=== PATIENT | male | born 1950 | race Hispanic/Latino ===

== ENCOUNTER 2018-03-02 19:10 | Emergency (ER) | payer OTHER ==
[2018-03-02] MEDS ORDERED: Amoxicillin-Clav 875-125 mg Tab PO STA (19:33)
[2018-03-02] MEDS ORDERED: Rabies Immune Globulin 150 INTLU/ML VIAL IM ONE (19:34)
[2018-03-02] MEDS ORDERED: TDAP Vaccine 0.5 mL Syr IM ONE (19:36)
[2018-03-02 19:37] VITALS: BP 167/74; PULSE 72; RESP 16; TEMP 98
--- NOTE | 2018-03-02 19:48 | ED PDOC ---
Arrival/HPI <Dalton Blackwell - Last Filed: 03/02/18 21:33> - General Historian: Patient - History of Present Illness Narrative History of Present Illness (Text): 03/02/18 19:40 Pt is a 67 yo M with Past medical history of HTN, COPD, and AAA s/p repair in 2011 who presents for a cat bite. He states that he was attempting to get feral cats out of his lawn when the last cat bit him as he was grabbing the cat to get it out of his backyard. He states that after the bite he cleaned the area with hydrogen peroxide and then wrapped it up. He states that the cat only bit him once on his R index finger and he is having no pain from the bite as of now. He comes to the emergency department for a tetanus shot. He denies any swelling of the joint, any fevers, chills, numbness, tingling, weakness or limited ROM due to pain. past medical history: HTN, COPD, AAA s/p repair ' Pshx: AAA repair '12 @ [facility] All: NKDA Social: Occasional smoker- last was 2 weeks ago, social etoh use and recreational marijuana use last 1 mo ago Fam Hx: Denies Time/Duration: 4-6 hours Symptom Onset: Sudden Symptom Course: Improving <FelipeRenee - Last Filed: 03/02/18 22:09> - General Chief Complaint: Bite Time Seen by Provider: 03/02/18 19:12 Past Medical History - Provider Review Nursing Documentation Reviewed: Yes - Cardiac Hx Cardiac Disorders: Yes Hx Hypertension: Yes Other/Comment: AAA 10/25/2011 - Pulmonary Hx Respiratory Disorders: Yes Hx Chronic Obstructive Pulmonary Disease (COPD): Yes - Neurological Hx Neurological Disorder: No - HEENT Hx HEENT Disorder: No - Renal Hx Renal Disorder: No - Endocrine/Metabolic Hx Endocrine Disorders: No - Hematological/Oncological Hx Blood Disorders: No - Integumentary Hx Dermatological Disorder: No - Musculoskeletal/Rheumatological Hx Musculoskeletal Disorders: Yes Other/Comment: L4-L5 - Gastrointestinal Hx Gastrointestinal Disorders: No - Genitourinary/Gynecological Hx Genitourinary Disorders: No - Psychiatric Hx Psychophysiologic Disorder: No Hx Substance Use: No - Surgical History Hx Abdominal Aortic Aneurysm Repair: Yes (2011) Other/Comment: B/L Hernia repair - Suicidal Assessment Feels Threatened In Home Enviroment: No <Renee Wang - Last Filed: 03/02/18 22:09> Family/Social History - Physician Review Nursing Documentation Reviewed: Yes Family/Social History: No Known Family HX Smoking Status: Current Some Days Smoker Hx Alcohol Use: Yes (occasional) Hx Substance Use: No Hx Substance Use Treatment: No <Sloan Wangd - Last Filed: 03/02/18 22:09> Allergies/Home Meds <Dalton Blackwell - Last Filed: 03/02/18 21:33> <Sloan Wangd - Last Filed: 03/02/18 22:09> Allergies/Adverse Reactions: Allergies No Known Allergies Allergy (Verified 03/02/18 19:29) Home Medications: Home Meds Medication Instructions Recorded Confirmed Aspirin [Aspirin Chewable] 81 mg PO DAILY 05/29/15 05/29/15 Lisinopril 20 mg PO DAILY 05/29/15 05/29/15 Metoprolol Tartrate [Lopressor] 50 mg PO BID 05/29/15 05/29/15 Review of Systems - Physician Review All systems were reviewed & negative as marked: Yes - Review of Systems Constitutional: absent: Fevers Respiratory: absent: SOB, Cough Cardiovascular: absent: Chest Pain, Palpitations <Inocente Wangmad - Last Filed: 03/02/18 22:09> Physical Exam Vital Signs Temp Pulse Resp BP Pulse Ox 03/02/18 19:30 98.0 F 72 16 167/74 H 97 <RosalvaDalton - Last Filed: 03/02/18 21:33> Vital Signs Reviewed: Yes Vital Signs Temp Pulse Resp BP Pulse Ox 03/02/18 19:30 98.0 F 72 16 167/74 H 97 Temperature: Afebrile Blood Pressure: Hypertensive Pulse: Regular Respiratory Rate: Normal Appearance: Positive for: Well-Appearing, Non-Toxic, Comfortable Pain Distress: None Mental Status: Positive for: Alert and Oriented X 3 - Systems Exam Head: Present: Atraumatic, Normocephalic Pupils: Present: PERRL Extroacular Muscles: Present: EOMI Conjunctiva: Present: Normal Respiratory/Chest: Present: Clear to Auscultation, Good Air Exchange. No: Respiratory Distress, Accessory Muscle Use, Wheezes, Rales, Rhonchi Cardiovascular: Present: Regular Rate and Rhythm, Normal S1, S2. No: Murmurs, Rub, Gallop Abdomen: Present: Normal Bowel Sounds. No: Tenderness, Distention, Peritoneal Signs, Rebound, Guarding Upper Extremity: Present: Normal ROM, Neurovascularly Intact, Capillary Refill < 2s. No: Normal Inspection (puncture type laceration present on the dorsal aspect of the R index finger between the MCP joint and PIP joint. ROM is intact, no numbness or tingling present.), Erythema Neurological: Present: GCS=15, Speech Normal, Motor Func Grossly Intact, Normal Sensory Function Skin: Present: Warm, Dry, Normal Color. No: Rashes Psychiatric: Present: Alert, Oriented x 3, Normal Insight, Normal Concentration <Renee Wang - Last Filed: 03/02/18 22:09> Medical Decision Making ED Course and Treatment: 03/02/18 21:31 Patient is a 67 year old male presenting to the Emergency room complaining of a feral cat bite. In agreement with resident note. Patient was seen and evaluated with resident, came up with plan and treatment together. - Medication Orders Current Medication Orders: Discontinued Medications Amoxicillin/Clavulanate Potassium (Augmentin 875 Mg-125 Mg Tab) 1 tab PO STAT STA; Protocol Stop: 03/02/18 19:34 Last Admin: 03/02/18 19:47 Dose: 1 tab Rabies Immune Globulin (Imogam) 1,300 intlu IM .ONCE ONE Stop: 03/02/18 19:35 Last Admin: 03/02/18 20:50 Dose: 1,300 intlu IM Administration Charges Document 03/02/18 20:50 JOL (Rec: 03/02/18 20:50 JOL [id number]) Injection Site MAR Injection Site Left Deltoid Charges for Administration # of IM Administrations 2 MAR Immunization Data Document 03/02/18 20:50 JOL (Rec: 03/02/18 20:50 JOL [id number]) Immunization Data Vaccine Information Sheet Given Yes Immunization Registry Document 03/02/18 20:50 JOL (Rec: 03/02/18 20:50 [id number] Immunization Registry Consent Date 01/23/18 Rabies Vaccine Human Diploid Cell (Imovax Rabies) 2.5 units IM .ONCE ONE Stop: 03/02/18 19:35 Last Admin: 03/02/18 20:50 Dose: 2.5 units MAR Immunization Data Document 03/02/18 20:50 JOL (Rec: 03/02/18 20:50 JOL [id number]) Immunization Data Vaccine Information Sheet Given Yes Immunization Registry Document 03/02/18 20:50 JOL (Rec: 03/02/18 20:50 JOL [id number]) Immunization Registry Consent Date 01/23/18 Tetanus/Reduced Diphtheria/Acell Pertussis (Boostrix Vaccine Inj) 0.5 ml IM .ONCE ONE Stop: 03/02/18 19:37 Last Admin: 03/02/18 19:47 Dose: 0.5 ml Immunization Registry Document 03/02/18 19:47 SS (Rec: 03/02/18 19:47 SS [id number]) Immunization Registry Consent Date 01/23/18 <Dalton Blackwell - Last Filed: 03/02/18 21:33> ED Course and Treatment: 03/02/18 19:52 Pt is a 67 yo M with Past medical history detailed above who presented for a feral cat bite. - Augmentin 875/125 - Rabies Immunoglobulin and Vaccine - Tetanus booster - Medication Orders Current Medication Orders: Rabies Immune Globulin (Imogam) 1,300 intlu IM .ONCE ONE Stop: 03/02/18 19:35 Discontinued Medications Amoxicillin/Clavulanate Potassium (Augmentin 875 Mg-125 Mg Tab) 1 tab PO STAT STA; Protocol Stop: 03/02/18 19:34 Rabies Vaccine Human Diploid Cell (Imovax Rabies) 2.5 units IM .ONCE ONE Stop: 03/02/18 19:35 Tetanus/Reduced Diphtheria/Acell Pertussis (Boostrix Vaccine Inj) 0.5 ml IM .ONCE ONE Stop: 03/02/18 19:37 <Renee Wang - Last Filed: 03/02/18 22:09> - PA / COMMUNITY RELATIONS OFFICER / Resident Statement / has reviewed & agrees with the documentation as recorded. / has examined the patient and agrees with the treatment plan. - Scribe Statement The provider has reviewed the documentation as recorded by the Annalisaibkallie Teague All medical record entries made by the Scribe were at my direction and personally dictated by me. I have reviewed the chart and agree that the record accurately reflects my personal performance of the history, physical exam, medical decision making, and the department course for this patient. I have also personally directed, reviewed, and agree with the discharge instructions and disposition. <Dalton Blackwell - Last Filed: 03/02/18 21:33> Disposition/Present on Arrival <Dalton Blackwell - Last Filed: 03/02/18 21:33> - Present on Arrival Any Indicators Present on Arrival: No History of DVT/PE: No History of Uncontrolled Diabetes: No Urinary Catheter: No History of Decub. Ulcer: No History Surgical Site Infection Following: None - Disposition Have Diagnosis and Disposition been Completed?: Yes Disposition Time: 21:28 Patient Plan: Discharge <Renee Wang - Last Filed: 03/02/18 22:09> - Disposition Diagnosis: Cat bite of finger Disposition: HOME/ ROUTINE Condition: GOOD Additional Instructions: - Please keep wound dry and clean - Please cover wound with bacitracin when changing bandages - Please take prescribed antibiotics as directed and complete course - Please return for your follow up rabies vaccine series on days 3, 7, 14 and 21. First shot was administered today - If any new symptoms occur or if current symptoms worsen please return to the emergency department. Prescriptions: Amoxicillin/Clavulanate [Augmentin 875 MG-125 MG] 1 tab PO BID #20 tab Referrals: Maxim Jaimes MD [Primary Care Provider] - Follow up with primary Forms: [employer] (Syrian)
[2018-03-02] MEDS ORDERED: Bacitracin 500 Units/gm Oint Foilpak UD ONE (21:29)
[2018-03-02] MEDS ORDERED: Bacitracin 500 Units/gm Oint Foilpak UD TOP ONE (21:33)
[2018-03-02 21:48] VITALS: O2SAT 99
== END 2018-03-02 21:39 | disposition home or self-care (01) ==
LOC: ED 19:10
DX: S61.250A Open bite of right index finger without damage to nail, initial encounter (principal); W55.01XA Bitten by cat, initial encounter; I10 Essential (primary) hypertension; J44.9 Chronic obstructive pulmonary disease, unspecified

== ENCOUNTER 2018-03-05 06:08 | Emergency (ER) | payer OTHER ==
[2018-03-05 06:13] VITALS: BP 197/79; PULSE 77; RESP 18; TEMP 98.5; O2SAT 96
--- NOTE | 2018-03-05 06:17 | ED PDOC ---
Arrival/HPI - General Chief Complaint: Rabies Vaccine Series Time Seen by Provider: 03/05/18 06:13 - History of Present Illness Narrative History of Present Illness (Text): 03/05/18 06:13 pt presents for 2nd rabies vaccine , no other complaints Past Medical History - Provider Review Nursing Documentation Reviewed: Yes - Infectious Disease Hx of Infectious Diseases: None - Cardiac Hx Cardiac Disorders: Yes Hx Hypertension: Yes Other/Comment: AAA 10/25/2011 - Pulmonary Hx Respiratory Disorders: Yes Hx Chronic Obstructive Pulmonary Disease (COPD): Yes - Neurological Hx Neurological Disorder: No - HEENT Hx HEENT Disorder: No - Renal Hx Renal Disorder: No - Endocrine/Metabolic Hx Endocrine Disorders: No - Hematological/Oncological Hx Blood Disorders: No - Integumentary Hx Dermatological Disorder: No - Musculoskeletal/Rheumatological Hx Musculoskeletal Disorders: Yes Other/Comment: L4-L5 - Gastrointestinal Hx Gastrointestinal Disorders: No - Genitourinary/Gynecological Hx Genitourinary Disorders: No - Psychiatric Hx Psychophysiologic Disorder: No Hx Substance Use: No - Surgical History Hx Abdominal Aortic Aneurysm Repair: Yes (2011) Other/Comment: B/L Hernia repair - Suicidal Assessment Feels Threatened In Home Enviroment: No Family/Social History - Physician Review Nursing Documentation Reviewed: Yes Family/Social History: No Known Family HX Smoking Status: Current Some Days Smoker Hx Alcohol Use: Yes (occasional) Hx Substance Use: No Hx Substance Use Treatment: No Allergies/Home Meds Allergies/Adverse Reactions: Allergies No Known Allergies Allergy (Verified 03/02/18 19:29) Home Medications: Home Meds Medication Instructions Recorded Confirmed Aspirin [Aspirin Chewable] 81 mg PO DAILY 05/29/15 05/29/15 Lisinopril 20 mg PO DAILY 05/29/15 05/29/15 Metoprolol Tartrate [Lopressor] 50 mg PO BID 05/29/15 05/29/15 Review of Systems - Review of Systems Skin: Normal Physical Exam Vital Signs Reviewed: Yes Vital Signs Temp Pulse Resp BP Pulse Ox 03/05/18 06:12 98.5 F 77 18 197/79 H 96 Temperature: Afebrile - Systems Exam Upper Extremity: Present: Other (healing wound left index finger) Disposition/Present on Arrival - Present on Arrival Any Indicators Present on Arrival: No History of DVT/PE: No History of Uncontrolled Diabetes: No Urinary Catheter: No History of Decub. Ulcer: No History Surgical Site Infection Following: None - Disposition Have Diagnosis and Disposition been Completed?: Yes Diagnosis: Need for rabies vaccination Disposition: HOME/ ROUTINE Disposition Time: 06:17 Condition: GOOD
== END 2018-03-05 06:35 | disposition home or self-care (01) ==
LOC: ED 06:08
DX: Z23 Encounter for immunization (principal)

== ENCOUNTER 2018-03-09 08:36 | Emergency (ER) | payer OTHER ==
[2018-03-09 08:50] VITALS: RESP 18
--- NOTE | 2018-03-09 08:55 | ED PDOC ---
Arrival/HPI - General Chief Complaint: Rabies Vaccine Series Time Seen by Provider: 03/09/18 08:49 Historian: Patient - History of Present Illness Narrative History of Present Illness (Text): 67 y/o w/ h/o HTN presenting to the ED for his rabies shot. The patient states he was bitten by a cat earlier in the month and had received all his prior shots within the immunization series thus far. He denies any somatic complaints at t his time. Time/Duration: Prior to Arrival Symptom Onset: Gradual Symptom Course: Unchanged Context: Home Past Medical History - Provider Review Nursing Documentation Reviewed: Yes - Travel History Have you recently traveled outside [place] w/in the past 3 mons?: No - Infectious Disease Hx of Infectious Diseases: None - Cardiac Hx Cardiac Disorders: Yes Hx Hypertension: Yes Other/Comment: AAA 10/25/2011 - Pulmonary Hx Respiratory Disorders: Yes Hx Chronic Obstructive Pulmonary Disease (COPD): Yes - Neurological Hx Neurological Disorder: No - HEENT Hx HEENT Disorder: No - Renal Hx Renal Disorder: No - Endocrine/Metabolic Hx Endocrine Disorders: No - Hematological/Oncological Hx Blood Disorders: No - Integumentary Hx Dermatological Disorder: No - Musculoskeletal/Rheumatological Hx Musculoskeletal Disorders: Yes Other/Comment: L4-L5 - Gastrointestinal Hx Gastrointestinal Disorders: No - Genitourinary/Gynecological Hx Genitourinary Disorders: No - Psychiatric Hx Psychophysiologic Disorder: No Hx Substance Use: No - Surgical History Hx Abdominal Aortic Aneurysm Repair: Yes (2011) Other/Comment: B/L Hernia repair - Suicidal Assessment Feels Threatened In Home Enviroment: No Family/Social History - Physician Review Nursing Documentation Reviewed: Yes Family/Social History: No Known Family HX Smoking Status: Current Some Days Smoker Hx Alcohol Use: Yes (occasional) Hx Substance Use: No Hx Substance Use Treatment: No Allergies/Home Meds Allergies/Adverse Reactions: Allergies No Known Allergies Allergy (Verified 03/09/18 08:47) Home Medications: Home Meds Medication Instructions Recorded Confirmed Aspirin [Aspirin Chewable] 81 mg PO DAILY 05/29/15 03/09/18 Lisinopril [Zestril] 20 mg PO DAILY 03/09/18 03/09/18 Metoprolol Tartrate [Lopressor] 50 mg PO BID 03/09/18 03/09/18 Review of Systems - Physician Review All systems were reviewed & negative as marked: Yes - Review of Systems Respiratory: absent: SOB, Cough, Wheezing Cardiovascular: absent: Chest Pain, Edema, SAVAGE Physical Exam Vital Signs Temp Pulse Resp BP Pulse Ox 03/09/18 08:45 97.8 F 59 L 18 178/79 H 99 Temperature: Afebrile Blood Pressure: Hypertensive Pulse: Regular Respiratory Rate: Normal Appearance: Positive for: Well-Appearing, Non-Toxic, Comfortable Mental Status: Positive for: Alert and Oriented X 3 - Systems Exam Head: Present: Atraumatic, Normocephalic Pupils: Present: PERRL Extroacular Muscles: Present: EOMI Conjunctiva: Present: Normal Mouth: Present: Moist Mucous Membranes Neck: Present: Normal Range of Motion Respiratory/Chest: Present: Clear to Auscultation, Good Air Exchange. No: Respiratory Distress, Accessory Muscle Use Cardiovascular: Present: Regular Rate and Rhythm, Normal S1, S2. No: Murmurs Abdomen: Present: Normal Bowel Sounds. No: Tenderness, Distention, Peritoneal Signs Upper Extremity: Present: Normal Inspection, Capillary Refill < 2s. No: Cyanosis, Edema Lower Extremity: Present: Capillary Refill < 2 s Neurological: Present: GCS=15, CN II-XII Intact, Speech Normal Skin: Present: Warm, Dry. No: Rashes, Normal Color Psychiatric: Present: Alert, Oriented x 3, Normal Insight, Normal Concentration Medical Decision Making ED Course and Treatment: Impression 67 y/o M presenting for rabies shot. Disposition/Present on Arrival - Present on Arrival Any Indicators Present on Arrival: No History of DVT/PE: No History of Uncontrolled Diabetes: No Urinary Catheter: No History of Decub. Ulcer: No History Surgical Site Infection Following: None - Disposition Have Diagnosis and Disposition been Completed?: Yes Diagnosis: Encounter for repeat administration of rabies vaccination Disposition: HOME/ ROUTINE Disposition Time: 09:21 Patient Plan: Discharge Condition: STABLE Discharge Instructions (ExitCare): Vaccines for Adults Referrals: Haven King MD [Medical Doctor] - Follow up with primary [facility] [place] [Outside] - Follow up with primary Forms: [employer] (Armenian), WORK NOTE
[2018-03-09 09:35] VITALS: BP 163/76; PULSE 58; TEMP 98; O2SAT 100
== END 2018-03-09 09:38 | disposition home or self-care (01) ==
LOC: ED 08:36
DX: Z23 Encounter for immunization (principal); I10 Essential (primary) hypertension

== ENCOUNTER 2018-03-16 06:13 | Emergency (ER) | payer OTHER ==
[2018-03-16 06:17] VITALS: BMI 20.2
[2018-03-16 06:26] VITALS: BP 194/86; PULSE 56; RESP 18; TEMP 98.1; O2SAT 100
--- NOTE | 2018-03-16 06:31 | ED PDOC ---
Arrival/HPI - General Chief Complaint: Bite Time Seen by Provider: 03/16/18 06:27 Historian: Patient - History of Present Illness Narrative History of Present Illness (Text): 03/16/18 06:31 Patient to ED to receive next dose in series of rabies vaccinations,Day 14.No complaints offered. Past Medical History - Provider Review Nursing Documentation Reviewed: Yes - Travel History Have you recently traveled outside [place] w/in the past 3 mons?: No - Infectious Disease Hx of Infectious Diseases: None - Cardiac Hx Cardiac Disorders: Yes Hx Hypertension: Yes Other/Comment: AAA 10/25/2011 - Pulmonary Hx Respiratory Disorders: Yes Hx Chronic Obstructive Pulmonary Disease (COPD): Yes - Neurological Hx Neurological Disorder: No - HEENT Hx HEENT Disorder: No - Renal Hx Renal Disorder: No - Endocrine/Metabolic Hx Endocrine Disorders: No - Hematological/Oncological Hx Blood Disorders: No - Integumentary Hx Dermatological Disorder: No - Musculoskeletal/Rheumatological Hx Musculoskeletal Disorders: Yes Other/Comment: L4-L5 - Gastrointestinal Hx Gastrointestinal Disorders: No - Genitourinary/Gynecological Hx Genitourinary Disorders: No - Psychiatric Hx Psychophysiologic Disorder: No Hx Substance Use: No - Surgical History Hx Abdominal Aortic Aneurysm Repair: Yes (2011) Other/Comment: B/L Hernia repair - Suicidal Assessment Feels Threatened In Home Enviroment: No Family/Social History - Physician Review Nursing Documentation Reviewed: Yes Family/Social History: No Known Family HX Smoking Status: Current Some Days Smoker Hx Alcohol Use: Yes (occasional) Frequency of alcohol use: Socially Hx Substance Use: No Hx Substance Use Treatment: No Allergies/Home Meds Allergies/Adverse Reactions: Allergies No Known Allergies Allergy (Verified 03/16/18 06:17) Home Medications: Home Meds Medication Instructions Recorded Confirmed Aspirin [Aspirin Chewable] 81 mg PO DAILY 05/29/15 03/16/18 Lisinopril [Zestril] 20 mg PO DAILY 03/09/18 03/16/18 Metoprolol Tartrate [Lopressor] 50 mg PO BID 03/09/18 03/16/18 Review of Systems - Review of Systems Constitutional: Normal Eyes: Normal ENT: Normal Respiratory: Normal Cardiovascular: Normal Gastrointestinal: Normal Genitourinary Male: Normal Musculoskeletal: Normal Skin: Normal Neurological: Normal Endocrine: Normal Hemo/Lymphatic: Normal Psychiatric: Normal Physical Exam Vital Signs Temp Pulse Resp BP Pulse Ox 03/16/18 06:26 98.1 F 56 L 18 194/86 H 100 Temperature: Afebrile Blood Pressure: Normal Pulse: Regular Respiratory Rate: Normal Appearance: Positive for: Well-Appearing, Non-Toxic, Comfortable Pain Distress: None Mental Status: Positive for: Alert and Oriented X 3 - Systems Exam Head: Present: Atraumatic, Normocephalic Pupils: Present: PERRL Extroacular Muscles: Present: EOMI Conjunctiva: Present: Normal Mouth: Present: Moist Mucous Membranes Neck: Present: Normal Range of Motion Respiratory/Chest: Present: Clear to Auscultation, Good Air Exchange. No: Respiratory Distress, Accessory Muscle Use Cardiovascular: Present: Regular Rate and Rhythm, Normal S1, S2. No: Murmurs Abdomen: No: Tenderness, Distention, Peritoneal Signs Back: Present: Normal Inspection Upper Extremity: Present: Normal Inspection. No: Cyanosis, Edema Lower Extremity: Present: Normal Inspection. No: Edema Neurological: Present: GCS=15, CN II-XII Intact, Speech Normal, Motor Func Grossly Intact, Normal Sensory Function Skin: Present: Warm, Dry, Normal Color. No: Rashes Psychiatric: Present: Alert, Oriented x 3, Normal Insight, Normal Concentration Disposition/Present on Arrival - Present on Arrival Any Indicators Present on Arrival: No History of DVT/PE: No History of Uncontrolled Diabetes: No Urinary Catheter: No History of Decub. Ulcer: No History Surgical Site Infection Following: None - Disposition Have Diagnosis and Disposition been Completed?: Yes Diagnosis: Encounter for repeat administration of rabies vaccination Disposition: HOME/ ROUTINE Disposition Time: 06:34 Patient Plan: Discharge Condition: GOOD Additional Instructions: Follow up in 7 days for completion of rabies vaccination series Forms: [employer] (Zambian)
== END 2018-03-16 06:45 | disposition home or self-care (01) ==
LOC: ED 06:13
DX: Z23 Encounter for immunization (principal); I10 Essential (primary) hypertension; J44.9 Chronic obstructive pulmonary disease, unspecified

== ENCOUNTER 2018-03-23 06:34 | Emergency (ER) | payer OTHER ==
[2018-03-23 06:34] VITALS: BMI 20.2
[2018-03-23 06:54] VITALS: BP 153/85; PULSE 84; RESP 19; TEMP 97.9; O2SAT 100
--- NOTE | 2018-03-23 07:30 | ED PDOC ---
Arrival/HPI - General Chief Complaint: Rabies Vaccine Series Time Seen by Provider: 03/23/18 07:08 Historian: Patient - History of Present Illness Narrative History of Present Illness (Text): 03/23/18 07:10 A 67 year old male, with no significant past medical history, presents to the emergency department for vaccination. Patient is here to have his last vaccination for rabies s/p cat bite. Patient has no physical/symptomatic co mplaints. No PMD Past Medical History - Provider Review Nursing Documentation Reviewed: Yes - Infectious Disease Hx of Infectious Diseases: None - Cardiac Hx Cardiac Disorders: Yes Hx Hypertension: Yes Other/Comment: AAA 10/25/2011 - Pulmonary Hx Respiratory Disorders: Yes Hx Chronic Obstructive Pulmonary Disease (COPD): Yes - Neurological Hx Neurological Disorder: No - HEENT Hx HEENT Disorder: No - Renal Hx Renal Disorder: No - Endocrine/Metabolic Hx Endocrine Disorders: No - Hematological/Oncological Hx Blood Disorders: No - Integumentary Hx Dermatological Disorder: No - Musculoskeletal/Rheumatological Hx Musculoskeletal Disorders: Yes Other/Comment: L4-L5 - Gastrointestinal Hx Gastrointestinal Disorders: No - Genitourinary/Gynecological Hx Genitourinary Disorders: No - Psychiatric Hx Psychophysiologic Disorder: No Hx Substance Use: No - Surgical History Hx Abdominal Aortic Aneurysm Repair: Yes (2011) Other/Comment: B/L Hernia repair - Suicidal Assessment Feels Threatened In Home Enviroment: No Family/Social History - Physician Review Nursing Documentation Reviewed: Yes Family/Social History: No Known Family HX Smoking Status: Current Some Days Smoker Hx Alcohol Use: Yes (occasional) Hx Substance Use: No Hx Substance Use Treatment: No Allergies/Home Meds Allergies/Adverse Reactions: Allergies No Known Allergies Allergy (Verified 03/16/18 06:17) Home Medications: Home Meds Medication Instructions Recorded Confirmed RX: Aspirin [Aspirin Chewable] 81 mg PO DAILY 05/29/15 03/23/18 RX: Lisinopril [Zestril] 20 mg PO DAILY 03/09/18 03/23/18 RX: Metoprolol Tartrate [Lopressor] 50 mg PO BID 03/09/18 03/23/18 Review of Systems - Physician Review All systems were reviewed & negative as marked: Yes - Review of Systems Constitutional: absent: Fevers, Night Sweats Respiratory: absent: SOB, Cough Cardiovascular: absent: Chest Pain Gastrointestinal: absent: Abdominal Pain, Diarrhea, Nausea, Vomiting Neurological: absent: Headache, Dizziness Physical Exam Vital Signs Reviewed: Yes Vital Signs Temp Pulse Resp BP Pulse Ox 03/23/18 06:52 97.9 F 84 19 153/85 H 100 Temperature: Afebrile Blood Pressure: Normal Pulse: Regular Respiratory Rate: Normal Appearance: Positive for: Well-Appearing, Non-Toxic, Comfortable Pain Distress: None Mental Status: Positive for: Alert and Oriented X 3 - Systems Exam Head: Present: Atraumatic, Normocephalic Pupils: Present: PERRL Extroacular Muscles: Present: EOMI Conjunctiva: Present: Normal Mouth: Present: Moist Mucous Membranes Neck: Present: Normal Range of Motion Respiratory/Chest: Present: Clear to Auscultation, Good Air Exchange. No: Respiratory Distress, Accessory Muscle Use Cardiovascular: Present: Regular Rate and Rhythm, Normal S1, S2. No: Murmurs Abdomen: No: Tenderness, Distention, Peritoneal Signs Back: Present: Normal Inspection Upper Extremity: Present: Normal Inspection. No: Cyanosis, Edema Lower Extremity: Present: Normal Inspection. No: Edema Neurological: Present: GCS=15, CN II-XII Intact, Speech Normal Skin: Present: Warm, Dry, Normal Color. No: Rashes Psychiatric: Present: Alert, Oriented x 3, Normal Insight, Normal Concentration Medical Decision Making ED Course and Treatment: 03/23/18 07:13 Impression: 67 year old male here for last dose of rabies vaccination. Physical exam is benign. Plan: -- Rabies Vaccine -- Reassess and disposition Prior Visits: Notes and results from previous visits were reviewed. Patient was last seen in the emergency department on 03/16/2018 for next dose in series of rabies vaccination, with no complaints offered. Patient was discharged home. Progress Notes: - Medication Orders Current Medication Orders: Discontinued Medications Rabies Vaccine Human Diploid Cell (Rabavert Vaccine Inj) 2.5 units IM .ONCE ONE Stop: 03/23/18 07:10 - Scribe Statement The provider has reviewed the documentation as recorded by the Lj Newton Provider Scribe Attestation: All medical record entries made by the Scribe were at my direction and personally dictated by me. I have reviewed the chart and agree that the record accurately reflects my personal performance of the history, physical exam, medical decision making, and the department course for this patient. I have also personally directed, reviewed, and agree with the discharge instructions and disposition. Disposition/Present on Arrival - Present on Arrival Any Indicators Present on Arrival: No History of DVT/PE: No History of Uncontrolled Diabetes: No Urinary Catheter: No History of Decub. Ulcer: No History Surgical Site Infection Following: None - Disposition Have Diagnosis and Disposition been Completed?: Yes Diagnosis: Need for rabies vaccination Disposition: HOME/ ROUTINE Disposition Time: 07:00 Patient Problems: Current Active Problems Problem Status Onset Need for rabies vaccination Acute Condition: STABLE Discharge Instructions (ExitCare): Vaccines for Adults Additional Instructions: return to er with worsening Forms: [facility] (I[place]ic)
== END 2018-03-23 07:50 | disposition home or self-care (01) ==
LOC: ED 06:34
DX: Z23 Encounter for immunization (principal)